=== PATIENT | female | born 1985 | race Caucasian/White ===

== ENCOUNTER 2018-11-14 13:10 | Emergency (ER) | payer OTHER ==
--- NOTE | 2018-11-14 14:20 | RAD REPORT ---
EXAM DESCRIPTION: RAD - Foot Left 3 View - 11/14/2018 1:54 pm CLINICAL HISTORY: Foot pain following injury COMPARISON: None. FINDINGS: No fracture, dislocation or periosteal reaction. No acute or destructive bony process. Ve ry small plantar spur is present. No air or foreign body in the soft tissues. IMPRESSION: Negative left foot examination.
--- NOTE | 2018-11-14 14:57 | ER ---
Nurse's Notes [facility] Name: Temi Shi Age: 32 yrs Sex: Female : 1985 Arrival Date: 11/14/2018 Time: 13:12 Bed 14 Private MD: Tee Romano Diagnosis: Unspecified sprain of left foot Presentation: 11/14 13:16 Presenting complaint: Patient states: pain to foot after jumping on trampoline, landed ch on the edge wrong, happened 1215. Transition of care: patient was not received from another setting of care. Onset of symptoms was November 14, 2018 at 12:15. Risk Assessment: Do you want to hurt yourself or someone else? Patient reports no desire to harm self or others. Initial Sepsis Screen: Does the patient meet any 2 criteria? No. Patient's initial sepsis screen is negative. Does the patient have a suspected source of infection? No. Patient's initial sepsis screen is negative. Care prior to arrival: ice. 13:16 Method Of Arrival: Wheelchair 13:16 Acuity: THU 4 Triage Assessment: 13:18 General: Appears in no apparent distress. comfortable, Behavior is calm, cooperative, ch appropriate for age. Pain: Complains of pain in left foot Pain currently is 9 out of 10 on a pain scale. Musculoskeletal: Circulation, motion, and sensation intact. Capillary refill < 3 seconds, in bilateral toes. 14:25 Injury Description: Jumping on trampoline and landed wrong. rb1 HAND BANDER: 13:18 LMP N/A - control method Historical: - Allergies: 13:18 No Known Allergies; ch - PMHx: 13:18 None; - PSHx: 13:18 Knee surgery; - Immunization history:: Adult Immunizations up to date, Flu vaccine is not up to date. - Social history:: Smoking status: Patient/guardian denies using tobacco, Patient/guardian denies using alcohol, street drugs. - Ebola Screening: : Patient negative for fever greater than or equal to 101.5 degrees Fahrenheit, and additional compatible Ebola Virus Disease symptoms Patient denies exposure to infectious person Patient denies travel to an Ebola-affected area in the 21 days before illness onset No symptoms or risks identified at this time. Screenin:25 Abuse screen: Denies threats or abuse. Nutritional screening: No deficits noted. rb1 Tuberculosis screening: No symptoms or risk factors identified. Fall Risk No fall in past 12 months (0 pts). Secondary diagnosis (15 points) impaired mobility, No IV (0 pts). Ambulatory Aid- None/Bed Rest/Nurse Assist (0 pts). Gait- Impaired (20 pts.). Mental Status- Oriented to own ability (0 pts). Total Booth Fall Scale indicates Low Risk Score (25-44 pts). Fall prevention measures have been instituted. Side Rails Up X 2 Placed close to Nursing Station 1:1 attendant Assigned to Pt. Frequent Obs/Assesments occuring Family Present and informed to notify staff if they need to leave bedside As available Patient and Family Educated on Fall Prevention Program and strategies. Assessment: 14:25 General: Appears uncomfortable, Behavior is calm, cooperative. Pain: Complains of pain rb1 in left foot Pain currently is 9 out of 10 on a pain scale. Pain began 1215. Neuro: Level of Consciousness is awake, alert, obeys commands, Oriented to person, place, time, situation. Neuro: Cardiovascular: Capillary refill < 3 seconds is brisk in bilateral fingers. Respiratory: Airway is patent Respiratory effort is even, unlabored, Respiratory pattern is regular, symmetrical. GI: No signs and/or symptoms were reported involving the gastrointestinal system. : No signs and/or symptoms were reported regarding the genitourinary system. Derm: Skin is pink, warm \T\ dry. Musculoskeletal: Swelling present in left foot. Vital Signs: 13:18 BP 121 / 80; Pulse 77; Resp 14; Temp 97.9; Pulse Ox 99% on R/A; Weight 90.72 kg; Height ch 5 ft. 9 in. (175.26 cm); Pain 9/10; 14:25 BP 119 / 78; Pulse 63; Resp 16; Pulse Ox 100% on R/A; Pain 9/10; rb1 13:18 Body Mass Index 29.53 (90.72 kg, 175.26 cm) ED Course: 13:12 Patient arrived in ED. as 13:13 Tee Romano MD is Private Physician. as 13:17 Triage completed. ch 13:18 Arm band placed on left wrist. Patient placed in waiting room. 13:30 Amparo West FNP-C is PHCP. kb 13:30 Bruce Yarbrough MD is Attending Physician. kb 13:54 XRAY Foot LEFT 3 View In Process Unspecified. EDMS 14:16 X-ray completed. Portable x-ray completed in exam room. Patient tolerated procedure la2 well. 14:25 Patient has correct armband on for positive identification. Bed in low position. Call rb1 light in reach. Side rails up X 1. Pulse ox on. NIBP on. 14:26 Suze Luis, RN is Primary Nurse. rb1 15:09 No provider procedures requiring assistance completed. Patient did not have IV access rb1 during this emergency room visit. Administered Medications: No medications were administered Outcome: 14:56 Discharge ordered by MD. kb 15:09 Discharged to home via wheelchair, with family. rb1 15:09 Condition: stable 15:09 Discharge instructions given to patient, Instructed on discharge instructions, follow up and referral plans. Demonstrated understanding of instructions, follow-up care, Prescriptions given X none 15:13 Patient left the ED. rb1 Signatures: Dispatcher [employer] EDMS Amparo West, FICTION AND NONFICTION AUTHOR-C FICTION AND NONFICTION AUTHOR-Shadia Velasco, RN RN Kaylynn Beatty as Suze Luis, RN RN rb1 Brittany Urbina la2
--- NOTE | 2018-11-14 14:57 | EDPHYS ---
Physician Documentation [facility] Name: Temi Shi Age: 32 yrs Sex: Female : 1985 Arrival Date: 11/14/2018 Time: 13:12 Bed 14 Private MD: Tee Romano ED Physician Bruce Yarbrough HPI: 11/14 14:52 This 32 yrs old Female presents to ER via Wheelchair with complaints of Foot kb Injury. 14:53 The patient presents with an injury, pain, swelling, tenderness. The complaints affect kb the left foot. Context: The problem was sustained outdoors, resulted from landed wrong when jumping on trampoline, the patient can partially bear weight. Onset: The symptoms/episode began/occurred just prior to arrival. Modifying factors: The symptoms are alleviated by nothing, the symptoms are aggravated by weight bearing, movement. Associated signs and symptoms: Pertinent positives: swelling, Pertinent negatives: calf tenderness, fever, nausea, numbness, rash, tingling, vomiting, warmth, weakness. Severity of symptoms: At their worst the symptoms were moderate, in the emergency department the symptoms are unchanged. The patient has not experienced similar symptoms in the past. The patient has not recently seen a physician. SENIOR SQL DBA: 13:18 LMP N/A - control method ch Historical: - Allergies: 13:18 No Known Allergies; ch - PMHx: 13:18 None; ch - PSHx: 13:18 Knee surgery; ch - Immunization history:: Adult Immunizations up to date, Flu vaccine is not up to date. - Social history:: Smoking status: Patient/guardian denies using tobacco, Patient/guardian denies using alcohol, street drugs. - Ebola Screening: : Patient negative for fever greater than or equal to 101.5 degrees Fahrenheit, and additional compatible Ebola Virus Disease symptoms Patient denies exposure to infectious person Patient denies travel to an Ebola-affected area in the 21 days before illness onset No symptoms or risks identified at this time. ROS: 14:51 Constitutional: Negative for fever, chills, and weight loss, Cardiovascular: Negative kb for chest pain, palpitations, and edema, Respiratory: Negative for shortness of breath, cough, wheezing, and pleuritic chest pain, Abdomen/GI: Negative for abdominal pain, nausea, vomiting, diarrhea, and constipation, Skin: Negative for injury, rash, and discoloration, Neuro: Negative for headache, weakness, numbness, tingling, and seizure. 14:51 MS/extremity: Positive for injury or acute deformity, pain, swelling, tenderness, of the dorsum of left foot. Exam: 14:51 Constitutional: This is a well developed, well nourished patient who is awake, alert, kb and in no acute distress. Head/Face: Normocephalic, atraumatic. Chest/axilla: Normal chest wall appearance and motion. Nontender with no deformity. No lesions are appreciated. Cardiovascular: Regular rate and rhythm with a normal S1 and S2. No gallops, murmurs, or rubs. Normal PMI, no JVD. No pulse deficits. Respiratory: Lungs have equal breath sounds bilaterally, clear to auscultation and percussion. No rales, rhonchi or wheezes noted. No increased work of breathing, no retractions or nasal flaring. Abdomen/GI: Soft, non-tender, with normal bowel sounds. No distension or tympany. No guarding or rebound. No evidence of tenderness throughout. Skin: Warm, dry with normal turgor. Normal color with no rashes, no lesions, and no evidence of cellulitis. Neuro: Awake and alert, GCS 15, oriented to person, place, time, and situation. Cranial nerves II-XII grossly intact. Motor strength 5/5 in all extremities. Sensory grossly intact. Cerebellar exam normal. Normal gait. 14:51 Musculoskeletal/extremity: Extremities: grossly normal except: noted in the dorsum of left foot: pain, swelling, tenderness, ROM: limited active range of motion due to pain, in the left foot, Circulation is intact in all extremities. Sensation intact. Weight bearing: can bear weight with assistance only. Vital Signs: 13:18 BP 121 / 80; Pulse 77; Resp 14; Temp 97.9; Pulse Ox 99% on R/A; Weight 90.72 kg; Height 5 ft. 9 in. (175.26 cm); Pain 9/10; 14:25 BP 119 / 78; Pulse 63; Resp 16; Pulse Ox 100% on R/A; Pain 9/10; rb1 13:18 Body Mass Index 29.53 (90.72 kg, 175.26 cm) [facility]: 14:21 Patient medically screened. kb 14:51 Data reviewed: vital signs, nurses notes. Data interpreted: Pulse oximetry: on room air kb is 99 %. Interpretation: normal. Counseling: I had a detailed discussion with the patient and/or guardian regarding: the historical points, exam findings, and any diagnostic results supporting the discharge/admit diagnosis, radiology results, the need for outpatient follow up, a family practitioner, to return to the emergency department if symptoms worsen or persist or if there are any questions or concerns that arise at home. 11/14 13:20 Order name: XRAY Foot LEFT 3 View; Complete Time: 14:21 11/14 14:51 Order name: Ismael Wrap; Complete Time: 20:15 kb Administered Medications: No medications were administered Disposition: 11/14/18 14:56 Discharged to Home. Impression: Unspecified sprain of left foot. - Condition is Stable. - Discharge Instructions: Foot Sprain. - Medication Reconciliation Form, Thank You Letter, Antibiotic Education, Prescription Opioid Use form. - Follow up: Emergency Department; When: As needed; Reason: Worsening of condition. Follow up: Private Physician; When: 2 - 3 days; Reason: Recheck today's complaints, Continuance of care, Re-evaluation by your physician. Addendum: 11/16/2018 09:19 Co-signature as Attending Physician, Bruce Yarbrough MD I agree with the assessment and c an plan of care. Signatures: Dispatcher [employer] EDAmparo Felix, EUGENE-C PATROL SUPERVISOR-Shadia Velasco, NATHANIEL RN Bruce Rodriguez MD MD cha Barber, Rebecca, RN RN rb1 Corrections: (The following items were deleted from the chart) 11/14 15:13 14:56 11/14/2018 14:56 Discharged to Home. Impression: Unspecified sprain of left foot. rb1 Condition is Stable. Forms are Medication Reconciliation Form, Thank You Letter, Antibiotic Education, Prescription Opioid Use. Follow up: Emergency Department; When: As needed; Reason: Worsening of condition. Follow up: Private Physician; When: 2 - 3 days; Reason: Recheck today's complaints, Continuance of care, Re-evaluation by your physician. kb
[2018-11-14 15:17] VITALS: BP 121/80; TEMP 97.9; O2SAT 99
== END 2018-11-14 15:13 | disposition home or self-care (01) ==
LOC: ER 13:10
DX: S93.602A Unspecified sprain of left foot, initial encounter (principal); W19.XXXA Unspecified fall, initial encounter; Y93.44 Activity, trampolining; Y92.89 Other specified places as the place of occurrence of the external cause
CPT/HCPCS: 99283